=== PATIENT | female | born 1975 | race American Indian/Alaskan Native ===

== ENCOUNTER 2017-11-22 10:15 | Inpatient (IN) | payer OTHER ==
[~2017-11-22] VITALS: Ht 167.6 cm; Wt 3.2 kg
[2017-11-22] MEDS ORDERED: PRENATABS RX T1 EACH PO (13:46)
== END 2017-12-10 11:27 | disposition home or self-care (01) | DRG 766 ==
LOC: OB/GYN 12-07 08:45 → O/R 12-07 09:30 → SURG-SUITE 12-07 09:30 → OB/GYN 12-07 10:15 → SURG-SUITE 12-07 17:35
PROVIDERS: Obstetrics & Gynecology
PROC: 0UL70ZZ Occlusion of Bilateral Fallopian Tubes, Open Approach (ICD-10-PCS; 2017-12-07)
PROC: 4A1HXCZ Monitoring of Products of Conception, Cardiac Rate, External Approach (ICD-10-PCS; 2017-12-07)
PROC: 4A033R1 Measurement of Arterial Saturation, Peripheral, Percutaneous Approach (ICD-10-PCS; 2017-12-07)
PROC: 10D00Z1 Extraction of Products of Conception, Low, Open Approach (ICD-10-PCS; principal; 2017-12-07 08:45)
DX: O82 Encounter for cesarean delivery without indication (principal); Z37.0 Single live birth; Z3A.36 36 weeks gestation of pregnancy; Z30.2 Encounter for sterilization; N83.8 Other noninflammatory disorders of ovary, fallopian tube and broad ligament